=== PATIENT | male | born 1950 | race Caucasian/White ===

== ENCOUNTER 2019-11-08 12:08 | Emergency (ER) | payer BC, MEDICARE, OTHER ==
[2019-11-08] MEDS ORDERED: HYDROmorphone 2 MG/ML SDV IVPUSH ONE (12:22)
[2019-11-08] MEDS ORDERED: Sodium Chloride 0.9% 1,000 ML IV ONE (12:22)
[2019-11-08] MEDS ORDERED: Ondansetron 4 MG/2 ML SDV IVPUSH ONE (12:23)
--- NOTE | 2019-11-08 12:29 | EDM.PDOC ---
ED HPI GENERAL MEDICAL PROBLEM - General Chief Complaint: Abdominal Pain Stated Complaint: left abd pain Time Seen by Provider: 11/08/19 12:10 Source of Information: Reports: Patient History Limitations: Reports: No Limitations - History of Present Illness INITIAL COMMENTS - FREE TEXT/NARRATIVE: coming from home/ clinic states he was on his way to work when he developed sudden onset of pain in the left back that radiates to the anterior abdomen , and now localized in the LLQ, dull constant ache about 7/10 , worse with movement had some nausea no vomiting no fever or chills had BM today was in to clinic and se DIAMOND done so far showed no blood in urine ( has history of renal calculi ears ago ) currently has Afib but is on beta-isidro: no anticoagulant Onset: Today Onset Date: 11/08/19 Onset Time: 08:30 Duration: Getting Worse, Intermittent Location: Reports: Abdomen, Back Quality: Reports: Dull, Stabbing Severity: Moderate Improves with: Reports: Rest Worsens with: Reports: Movement Context: Reports: Other Associated Symptoms: Reports: Nausea/Vomiting Treatments COVER REMOVER: Reports: Other (see below) (seen in clinic and had labs and UA done , will need CT abd) left side flank pain Pain Score (Numeric/FACES): 10 - Related Data Allergies Allergy/AdvReac Type Severity Reaction Status Date / Time Penicillins Allergy Cannot Verified 05/08/14 09:08 Remember Home Meds: Home Meds Aspirin [Adult Low Dose Aspirin EC] 81 mg PO DAILY 05/07/14 [History] Ibuprofen [Advil] 200 mg PO ASDIRECTED PRN 05/07/14 [History] Metoprolol Tartrate [Lopressor] 12.5 mg PO BID 05/07/14 [History] Acetaminophen/HYDROcodone [Unity 325-5 MG] 1 tab PO Q4H PRN #20 tab 11/08/19 [Rx ] Tamsulosin HCl [Flomax] 0.4 mg PO DAILY #30 cap.er.24h 11/08/19 [Rx] predniSONE [Prednisone] 50 mg PO DAILY #5 tablet 11/08/19 [Rx] Past Medical History Cardiovascular History: Reports: Afib, Hypertension Other Neuro History: anuerism Social & Family History - Living Situation & Occupation Living situation: Reports: Occupation: Employed ED ROS GENERAL - Review of Systems Review Of Systems: See Below Constitutional: Reports: No Symptoms, Fatigue. Denies: Fever, Chills, Malaise, Weakness HEENT: Reports: No Symptoms Respiratory: Reports: No Symptoms Cardiovascular: Reports: No Symptoms Endocrine: Reports: No Symptoms GI/Abdominal: Reports: No Symptoms, Nausea : Reports: Flank Pain, Pain, Urinary Retention. Denies: Hematuria Musculoskeletal: Reports: Back Pain (left flank) Skin: Reports: No Symptoms Neurological: Reports: No Symptoms Psychiatric: Reports: No Symptoms Hematologic/Lymphatic: Reports: No Symptoms ED EXAM, GI/ABD - Physical Exam Exam: See Below Exam Limited By: Other (uncomfortable from pain) General Appearance: Alert, WD/WN, Anxious, Mild Distress (from pain in the lower abdomen) Eyes: Bilateral: EOMI Ears: Normal External Exam Nose: Normal Inspection Throat/Mouth: Normal Oropharynx Head: Atraumatic Neck: Supple, Non-Tender Respiratory/Chest: Lungs Clear, Normal Breath Sounds Cardiovascular: Regular Rate, Rhythm GI/Abdominal Exam: Soft, Tender (in LLQ on deep palpation) (Male) Exam: No Hernia Back Exam: CVA Tenderness (L), Muscle Spasm Extremities: Normal Range of Motion Neurological: Alert, Oriented, CN II-XII Intact Psychiatric: Normal Affect Skin Exam: Warm Course - Vital Signs Last Recorded V/S: Last Vital Signs Temp 36.7 C 11/08/19 14:20 Pulse 57 L 11/08/19 14:20 Resp 17 11/08/19 14:20 BP 133/80 11/08/19 14:20 Pulse Ox 99 11/08/19 14:20 - Orders/Labs/Meds Orders: Active Orders 24 hr Category Date Time Status EKG Documentation Completion [RC] ASDIRECTED Care 11/08/19 12:22 Active EKG 12 Lead [EK] Routine Ther 11/08/19 12:22 Ordered Labs: Laboratory Tests 11/08/19 11/08/19 11/08/19 Range/Units 12:30 12:31 12:31 WBC 11.0 (4.5-12.0) X10-3/uL RBC 4.56 (4.30-5.75) x10(6)uL Hgb 14.4 (13.5-17.8) g/dL Hct 42.5 (30.0-51.3) % MCV 93.1 (80-96) fL MCH 31.6 (27.7-33.6) pg MCHC 34.0 (32.2-35.4) g/dL RDW 13.1 (11.5-15.5) % Plt Count 262 (125-369) X10(3)uL MPV 8.6 (7.4-10.4) fL Neut % (Auto) 80.8 (46-82) % Lymph % (Auto) 12.5 L (13-37) % Dickey % (Auto) 6.2 (4-12) % Eos % (Auto) 0 L (1.0-5.0) % Baso % (Auto) 0 (0-2) % Neut # (Auto) 8.9 H (1.6-8.3) # Lymph # (Auto) 1.4 (0.6-5.0) # Dickey # (Auto) 0.7 (0.0-1.3) # Eos # (Auto) 0.0 (0.0-0.8) # Baso # (Auto) 0.0 (0.0-0.2) # Sodium 142 (135-145) mmol/L Potassium 4.4 (3.5-5.3) mmol/L Chloride 105 (100-110) mmol/L Carbon Dioxide 27 (21-32) mmol/L BUN 21 H (7-18) mg/dL Creatinine 1.2 (0.70-1.30) mg/dL Est Cr Clr Drug Dosing TNP Estimated GFR (MDRD) > 60 (>60) BUN/Creatinine Ratio 17.5 (9-20) Glucose 119 H (80-116) mg/dL Calcium 9.0 (8.6-10.2) mg/dL NT-Pro-B Natriuret Pep 58 (<=125) pg/mL Meds: Medications Discontinued Medications Generic Name Dose Route Start Last Admin Trade Name Freq PRN Reason Stop Dose Admin Hydromorphone HCl 1 mg 11/08/19 12:22 11/08/19 12:42 Dilaudid IVPUSH 11/08/19 12:23 1 mg ONETIME ONE Administration Sodium Chloride 1,000 mls @ 999 mls/hr 11/08/19 12:22 11/08/19 12:42 Normal Saline IV 11/08/19 13:22 999 mls/hr .BOLUS ONE Administration Ondansetron HCl 4 mg 11/08/19 12:23 11/08/19 12:42 Zofran IVPUSH 11/08/19 12:24 4 mg ONETIME ONE Administration - Re-Assessments/Exams Free Text/Narrative Re-Assessment/Exam: 11/08/19 010:10 pt had IVF started , given Dilaudid, CT abd ordered was more comfortable Reviewed CT Abd: large renal calculi noted Called and discussed with Urologist in [facility]: recommended pt be discharged him and attempt to pass: if not able then FU in clinic discussed with pt will see PCP on monday If symptoms get worse over the weekend , will go to [facility] ER Departure - Departure Time of Disposition: 14:25 Disposition: Home, Self-Care 01 Condition: Fair Clinical Impression: Kidney stone on left side, Ureteral calculus, left, Ureteropelvic junction calculus, Acute left flank pain - Discharge Information *PRESCRIPTION DRUG MONITORING PROGRAM REVIEWED*: Not Applicable *COPY OF PRESCRIPTION DRUG MONITORING REPORT IN PATIENT ED: Not Applicable Prescriptions: Acetaminophen/HYDROcodone [Unity 325-5 MG] 1 tab PO Q4H PRN #20 tab PRN Reason: Pain (Severe 7-10) predniSONE [Prednisone] 50 mg PO DAILY #5 tablet Tamsulosin HCl [Flomax] 0.4 mg PO DAILY #30 cap.er.24h Instructions: Kidney Stones, [id number], Flank Pain, Adult, [id number], Dietary Guidelines to Help Prevent Kidney Stones, Lithotripsy Referrals: Zhao Roy MD [Primary Care Provider] - Forms: ED Department Discharge Additional Instructions: 1) Increase fluid intake 2) Strain urine 3) Make appointment to see PCP on monday 4) Make appointment to see Urologist in [place] if you are not able to pass stone [facility] urology clinic [phone] Dr. Roy appointment 02:45pm Monday11/12/19 in [facility] Sepsis Event Note - Focused Exam Date Exam was Performed: 11/09/19 Time Exam was Performed: 09:05 - My Orders Last 24 Hours: My Active Orders 11/08/19 12:22 EKG Documentation Completion [RC] ASDIRECTED EKG 12 Lead [EK] Routine - Assessment/Plan Last 24 Hours: My Active Orders 11/08/19 12:22 EKG Documentation Completion [RC] ASDIRECTED EKG 12 Lead [EK] Routine
[2019-11-08 15:58] VITALS: BP 133/80; PULSE 57
--- NOTE | 2019-11-08 16:44 | CT ---
INDICATION: Left lower quadrant abdominal pain, question diverticulitis, question renal calculi. CT ABDOMEN AND PELVIS WITHOUT CONTRAST: Spiral 3.75 mm axial sections were obtained through the abdomen and pelvis with renal calculus protocol including sagittal and coronal reconstructions with no contrast. Total exam DLP was 771.77 mGy-cm. No comparison studies were available. What appear to be some subsegmental atelectatic changes are noted in the left lower lobe, although they could be on the basis of minimal fibrosis or even minimal patchy pneumonia. A low-density lesion is noted in the upper middle pole of the left kidney which has mixed appearance, which could represent a neoplastic process or complicated cyst. Contrast-enhanced CT or ultrasound is recommended for further evaluation. It measured approximately 37 mm craniocaudad and transversely approximately 32 mm. A tiny similar lesion is noted in the lower pole of the right kidney. The larger lesion is in the upper middle pole of the left kidney medially. A tiny calculus is noted, most likely in a tamir in the mid pole of the left kidney with no evidence of renal calcinosis noted. There is however noted renal fascial thickening - fat stranding surrounding the left kidney with pyelocaliectasis and ureterectasis with some facial thickening about the ureter on the left down to the level of the ureterovesical junction where a 5.5 x 6.9 mm calculus is noted producing obstructive uropathy of moderate to moderately severe degree. No calculi were seen in the urinary bladder. The prostate did not appear grossly enlarged. No definite hernias were identified. The appendix is absent, compatible with history of its removal. No evidence of free air or bowel obstruction was seen. Sigmoid diverticulosis is mild without definite evidence of diverticulitis. Calcifications are noted in the abdominal aorta to a minimal degree. The liver appeared grossly normal. The adrenal glands, spleen, and unusually contoured pancreas appeared normal. No retroperitoneal masses were seen. IMPRESSION: 1. Obstructive uropathy due to a 5.5 x 6.9 mm oval-shaped calcific density at the distal left ureterovesical junction producing moderate to moderately severe obstructive uropathy on the left. 2. Only 1 tiny calculus noted probably in a tamir of the left mid pole kidney. 3. Questionable etiology of a mass in the upper middle pole medially of the left kidney. Ultrasound or contrast-enhanced CT may be helpful for further evaluation. A minimal probable questionable lesion is noted at the lower pole of the right kidney. The larger lesion could possibly represent a complicated renal cyst. 4. Post appendectomy. 5. Parenchymal changes at the left lower lobe - lung base may represent minimal linear atelectasis, patchy bronchopneumonia, and/or fibrosis. 6. Degenerative changes and disk disease noted in the lumbosacral spine in general, appearing most severe at L4-5 and L5-S1. Report was called to Dr. Madrigal at 1323 hours. [facility]
== END 2019-11-08 14:26 | disposition home or self-care (01) ==
LOC: FB.ED 12:08
DX: N20.2 Calculus of kidney with calculus of ureter (principal); I48.91 Unspecified atrial fibrillation; I10 Essential (primary) hypertension; Z88.0 Allergy status to penicillin; Z79.82 Long term (current) use of aspirin; Z79.899 Other long term (current) drug therapy
CPT/HCPCS: 36415; 74178; 80048; 83880; 85025; 93005; 96361; 96374; 96375; 99284-25; J1170; J2405; J7030

== ENCOUNTER 2020-03-26 07:46 | Day surgery (SDC) | payer BC ==
[~2020-03-26 07:46] MED LIST: Lactated Ringers 1,000 ML IV SCH; Sodium Chloride 0.9% 10 ML Syringe FLUSH PRN
[2020-03-26] MEDS ORDERED: Propofol 200 MG/20 ML SDV IV ONE (07:47)
[2020-03-26] MEDS ORDERED: Lactated Ringers 1,000 ML IV SCH (08:00)
[2020-03-26] MEDS ORDERED: Sodium Chloride 0.9% 10 ML Syringe FLUSH PRN (08:00)
--- NOTE | 2020-03-26 09:37 | PCM.OPNOTE ---
- General Post-Op/Procedure Note Date of Surgery/Procedure: 03/26/20 Operative Procedure(s): c scope with biopsy Findings: sigmoid colon polyp Pre Op Diagnosis: screening Post-Op Diagnosis: sigmoid colon polyp Anesthesia Technique: MAC Primary Surgeon: Toñito Vigil Anesthesia Provider: Melissa Tao Pathology: sigmoid colon polyp Complications: None Condition: Good Free Text/Narrative:: see dictation [id number]
[2020-03-26 10:42] VITALS: BP 118/75; PULSE 63
--- NOTE | 2020-03-26 12:58 | OR ---
DATE OF OPERATION: 03/26/2020 SURGEON: Toñito Vigil MD PROCEDURE PERFORMED: Colonoscopy with cold forceps biopsy. PREOPERATIVE DIAGNOSIS: Need for colon cancer screening. POSTOPERATIVE DIAGNOSIS: Sigmoid colon polyp. INDICATIONS FOR PROCEDURE: This is a 69-year-old white male, whose last colonoscopy was greater than 10 years ago. Apparently, he had a polyp removed. The biopsy results are not available due to change in electronic medical record format. He was offered and accepted colonoscopy. DESCRIPTION OF OPERATION: After an excellent IV sedation was administered, digital rectal exam was performed. No marked abnormality was noted. Flexible colonoscope was inserted and advanced to the cecum. The prep was excellent. The following findings were noted: Ascending colon was unremarkable. Transverse colon was unremarkable. Descending colon was unremarkable. Sigmoid, small polypoid lesion approximately 4 mm in size, biopsied with biopsy forceps and submitted in a single container. Rectum and anus were unremarkable. The patient tolerated the procedure well, was taken to recovery. Results will be sent via letter. /[id number] /MODL
== END 2020-03-26 10:33 | disposition home or self-care (01) ==
LOC: FB.SDS 07:46
PROVIDERS: ATTEND Surgery
DX: Z12.11 Encounter for screening for malignant neoplasm of colon (principal); K63.5 Polyp of colon; E78.2 Mixed hyperlipidemia; F17.200 Nicotine dependence, unspecified, uncomplicated; I48.91 Unspecified atrial fibrillation; Z98.890 Other specified postprocedural states; Z88.0 Allergy status to penicillin; Z79.899 Other long term (current) drug therapy
CPT/HCPCS: 45380; J2704; J7120; 00811-QZ; 88305